=== PATIENT | female | born 1955 | race Caucasian/White ===

== ENCOUNTER 2018-04-01 13:36 | Emergency (ER) | payer OTHER ==
[2018-04-01 13:49] VITALS: RESP 18
--- NOTE | 2018-04-01 14:28 | C.PDOC ---
History Of Present Illness <Keith Carlos - Last Filed: 04/01/18 16:30> <Payton Frye - Last Filed: 04/01/18 18:42> 62 y/o female, whose PMH includes diabetes, HTN and hypercholesterolemia, who presents to the emergency department complaining of epigastric pain since 3 days. Patient reports getting intermittent headaches and believes it is secondary to HTN. Patient denies chest pain, shortness of breath, headache, fever, chills, cough, nausea, vomiting, diarrhea, changes in bowel habits, dysuria, hematuria, frequency, flank pain, or other complaints. Pt admits to drinking etoh daily, however, declined detox. detox info was provided to pt and her family. (Payton Frye) <Keith Carlos - Last Filed: 04/01/18 16:30> History Per: Patient History/Exam Limitations: no limitations Onset/Duration Of Symptoms: Days Current Symptoms Are (Timing): Still Present Location Of Pain/Discomfort: Epigastric Radiation Of Pain To:: None Associated Symptoms: denies: Fever, Vomiting, Diarrhea Exacerbating Factors: None Alleviating Factors: None Recent travel outside of the [place]: No Abnormal Vaginal Bleeding: No <Payton Frye - Last Filed: 04/01/18 18:42> Time Seen by Provider: 04/01/18 13:55 Chief Complaint (Nursing): Abdominal Pain Past Medical History Reviewed: Historical Data, Nursing Documentation, Vital Signs - Medical History PMH: HTN, Hypercholesterolemia Family History: States: No Known Family Hx - Social History Hx Alcohol Use: Yes Hx Substance Use: No - Immunization History Hx Tetanus Toxoid Vaccination: No Hx Influenza Vaccination: No Hx Pneumococcal Vaccination: No <Payton Frye - Last Filed: 04/01/18 18:42> Vital Signs: Last Vital Signs Temp 98.7 F 04/01/18 17:17 Pulse 82 04/01/18 17:40 Resp 18 04/01/18 17:40 BP 160/92 H 04/01/18 17:40 Pulse Ox 99 04/01/18 18:41 Review Of Systems Except As Marked, All Systems Reviewed And Found Negative. Constitutional: Negative for: Fever Cardiovascular: Negative for: Chest Pain Respiratory: Negative for: Shortness of Breath Gastrointestinal: Positive for: Abdominal Pain (epigastric region ) <Payton Frye - Last Filed: 04/01/18 18:42> Physical Exam - Physical Exam Appears: Well, Non-toxic, No Acute Distress Skin: Normal Color, Warm, Dry Head: Atraumatic, Normacephalic Eye(s): bilateral: Normal Inspection, PERRL, EOMI Cardiovascular: Rhythm Regular, No Murmur Respiratory: Normal Breath Sounds, No Decreased Breath Sounds, No Rales, No Rhonchi, No Stridor, No Wheezing Gastrointestinal/Abdominal: Bowel Sounds (active), Tenderness (epigastric tenderness), No Distention, No Guarding, No Rebound Neurological/Psych: Oriented x3, Normal Speech, Normal Motor, Normal Sensation <Payton Frye - Last Filed: 04/01/18 18:42> ED Course And Treatment - Laboratory Results Result Diagrams: 04/01/18 15:49 04/01/18 15:49 <Keith Carlos - Last Filed: 04/01/18 16:30> - Laboratory Results Result Diagrams: 04/01/18 15:49 04/01/18 15:49 Lab Interpretation: No Acute Changes ECG: Interpreted By Me ECG Rhythm: Sinus Rhythm ECG Interpretation: No Acute Changes, Abnormal (left axis deviation) Rate From EC O2 Sat by Pulse Oximetry: 99 (room air) Pulse Ox Interpretation: Normal - Radiology CXR: Interpreted by Me, Viewed By Me, Read By Radiologist CXR Interpretation: Yes: No Acute Disease Reassessment Condition: Improved (pt reports resolution of epigastric pain, denies any complains, requests to be d/c home) <Payton Frye - Last Filed: 04/01/18 18:42> Medical Decision Making <Keith Carlos - Last Filed: 04/01/18 16:30> <Payton Frye - Last Filed: 04/01/18 18:42> Medical Decision Making: Impression: 62 y/o female with epigastric tenderness c/o epigastric pain since 3 days. Plan: -- EKG -- CXR -- Labs -- Pepcid and Sodium Chloride -- Urinalysis -- Reassess and disposition (Payton Frye) Disposition <Keith Carlos Last Filed: 04/01/18 16:30> Counseled Patient/Family Regarding: Studies Performed, Diagnosis, Need For Followup, Rx Given - Disposition Disposition Time: 17:11 <Payton Frye - Last Filed: 04/01/18 18:42> - Disposition Referrals: José Nogueira MD [Staff Provider] - Disposition: HOME/ ROUTINE Condition: STABLE Additional Instructions: FOLLOW UP WITH YOUR PMD ON TUESDAY FOR RE-EVALUATION. IF SYMPTOMS GET WORSE OR ANY NEW CONCERNING SYMPTOMS DEVELOP RETURN TO ED. Prescriptions: Famotidine 20 mg PO BID #60 tablet Omeprazole Magnesium [Prilosec Otc] 20 mg PO DAILY #14 tab Instructions: Alcohol Use - When Is Drinking a Problem?, Gastritis (DC), Alcohol Abuse and Alcoholism (DC) Forms: [employer] ([place]) - Clinical Impression Clinical Impression: Gastritis <Keith Carlos - Last Filed: 04/01/18 16:30> - Scribe Statement The provider has reviewed the documentation as recorded by the Scribe <Payton Frey - Last Filed: 04/01/18 18:42> - Scribe Statement Scribe Attestation: Yudi Sandoval MD Scribe Attestation: All medical record entries made by the Scribe were at my direction and personally dictated by me. I have reviewed the chart and agree that the record accurately reflects my personal performance of the history, physical exam, medical decision making, and the department course for this patient. I have also personally directed, reviewed, and agree with the discharge instructions and disposition. (Payton Frye)
[2018-04-01] MEDS ORDERED: Sodium Chloride 0.9% 500 ML IV ONE (14:33)
[2018-04-01] MEDS ORDERED: Aluminum Hydroxide/Magnesium Hydroxide Susp (30 mL) PO STA (14:36)
[2018-04-01] MEDS ORDERED: Sodium Chloride 0.9% 1,000 ML ONE (14:56)
[2018-04-01] MEDS ORDERED: Aluminum Hydroxide/Magnesium Hydroxide Susp (30 mL) ONE (14:56)
[2018-04-01 16:01] LABS: BASO # 0.1 K/uL (0.0-0.2); BASO % 0.7 % (0.0-2.0); EOS # 0.1 K/uL (0.0-0.7); EOS % 1.3 % (0.0-4.0); HEMOGLOBIN 13.8 g/dL (11.0-16.0); LYMPH # 1.8 K/uL (1.0-4.3); LYMPH % 21.4 % (20.0-40.0); MEAN CELL VOLUME 85.6 fL (81.0-99.0); MEAN CORPUSCULAR HEMOGLOBIN 27.5 pg (27.0-31.0); MEAN CORPUSCULAR HGB CONC 32.1 g/dL (33.0-37.0); MEAN PLATELET VOLUME 9.7 fL (7.2-11.7); MONO # 0.5 K/uL (0.0-0.8); MONO % 6.5 % (0.0-10.0); NEUT # 5.8 K/uL (1.8-7.0); NEUT % 70.1 % (50.0-75.0); RBC 5.01 Mil/uL (3.80-5.20); RED CELL DISTRIBUTION WIDTH 14.2 % (11.5-14.5); WHITE BLOOD COUNT 8.2 K/uL (4.8-10.8)
[2018-04-01 16:12] LABS: SQUAMOUS EPITHIAL 15 /hpf (0-5); URINE BACTERIA FEW (<OCC); URINE BILIRUBIN NEGATIVE (NEGATIVE); URINE BLOOD NEGATIVE (NEGATIVE); URINE CLARITY Hazy (Clear); URINE COLOR Yellow (YELLOW); URINE GLUCOSE (UA) NORMAL (Normal); URINE LEUKOCYTE ESTERASE TRACE Leu/uL (Negative); URINE PROTEIN NEGATIVE (NEGATIVE); URINE UROBILINOGEN NORMAL mg/dL (0.2-1.0)
[2018-04-01 16:16] LABS: ALB/GLOB RATIO 1.4 (1.0-2.1); ALBUMIN 4.7 g/dL (3.5-5.0); ALT/SGPT 31 U/L (9-52); AST/SGOT 30 U/L (14-36); BLOOD UREA NITROGEN 15 mg/dL (7-17); CALCIUM 9.8 mg/dl (8.6-10.4); GFR AFRICAN-AMERICAN > 60; GFR NON-AFRICAN AMERICAN > 60
--- NOTE | 2018-04-01 16:49 | RAD ---
PROCEDURE: CHEST RADIOGRAPH, 1 VIEW HISTORY: Epigastric pain COMPARISON: None available. FINDINGS: LUNGS: The lungs are well inflated and clear. PLEURA: No pneumothorax or pleural fluid seen. CARDIOVASCULAR: Normal. OSSEOUS STRUCTURES: No significant abnormalities. VISUALIZED UPPER ABDOMEN: Normal. OTHER FINDINGS: None. IMPRESSION: No active pulmonary disease.
[2018-04-01 17:22] VITALS: TEMP 98.7
[2018-04-01 17:53] VITALS: BP 160/92; PULSE 82
[2018-04-01 18:39] VITALS: O2SAT 99
--- NOTE | 2018-04-03 19:58 | CARD ---
APPROVED REPORT EKG Measurement Heart [id number] CT [id number] <Conclusion> Sinus rhythm with occasional premature ventricular complexes Left axis deviation Abnormal ECG
== END 2018-04-01 17:40 | disposition home or self-care (01) ==
LOC: C.ER 13:36
DX: K29.70 Gastritis, unspecified, without bleeding (principal); I10 Essential (primary) hypertension; E11.9 Type 2 diabetes mellitus without complications; E78.00 Pure hypercholesterolemia, unspecified
CPT/HCPCS: 71045; 80053; 80320; 81001; 85025; 87086; 93005; 96360; 99285; J7040